=== PATIENT | female | born 1935 | race Caucasian/White ===

== ENCOUNTER 2016-11-13 07:29 | Emergency (ER) | payer OTHER, MEDICAID ==
[~2016-11-13] VITALS: Ht 152.4 cm; Wt 45.0 kg
[2016-11-13] MEDS ORDERED: ATEN-42 PO (07:37)
[2016-11-13] MEDS ORDERED: ONDANSETRON HCL 4MG/2ML VIAL IV STA (07:43)
[2016-11-13] MEDS ORDERED: KETOROLAC 30MG/ML VIAL IV STA (07:43)
[2016-11-13] MEDS ORDERED: MORPHINE SULFATE 4 MG/ML CPJ (NOT FOR IM USE) IV STA (07:43)
[2016-11-13] MEDS ORDERED: DIPHENHYDRAMINE 50MG/ML VIAL IV PRN (11:30)
[2016-11-13] MEDS ORDERED: IPRATROPIUM/ALBUTEROL 0.5-3(2.5)MG/3ML NEB INH PRN (11:30)
[2016-11-13] MEDS ORDERED: NA PHOS,M-B/NA PHOS,DI-BA ENEMA 118ML PR PRN (11:30)
[2016-11-13] MEDS ORDERED: GUAIFENESIN 200MG/10ML SUGAR FREE UDC PO PRN (11:30)
[2016-11-13] MEDS ORDERED: DOCUSATE SODIUM 100MG CAPSULE PO PRN (11:30)
[2016-11-13] MEDS ORDERED: ENOXAPARIN 40MG/0.4ML SYR SUBCUT SCH (11:30)
[2016-11-13] MEDS ORDERED: HYDROCODONE/APAP 7.5/325MG 1 TAB TABLET PO PRN (11:30)
[2016-11-13] MEDS ORDERED: MAGNESIUM/ALUMINUM HYDROXIDE/SIMETHICONE 30ML UDC PO PRN (11:30)
[2016-11-13] MEDS ORDERED: HYDROMORPHONE HCL/PF 2MG/ML CPJ IV PRN (11:30)
[2016-11-13] MEDS ORDERED: CLONIDINE 0.1MG TABLET PO PRN (11:30)
[2016-11-13] MEDS ORDERED: LORAZEPAM 2MG/ML CPJ IV PRN (11:30)
[2016-11-13] MEDS ORDERED: ACETAMINOPHEN 325MG TABLET PO PRN (11:30)
[2016-11-13 12:28] VITALS: BP 166/53
== END 2016-11-13 12:55 | disposition short-term general hospital (02) ==
LOC: ER 07:38 → EDBEDREQTM 12:30 → ER 12:55 → ENRESERV 17:56 → CANBEDREQ 11-14 01:30
DX: S42.411A Displaced simple supracondylar fracture without intercondylar fracture of right humerus, initial encounter for closed fracture (principal); S42.401A Unspecified fracture of lower end of right humerus, initial encounter for closed fracture; I10 Essential (primary) hypertension; W01.0XXA Fall on same level from slipping, tripping and stumbling without subsequent striking against object, initial encounter; Y99.8 Other external cause status; Y93.89 Activity, other specified; Y92.89 Other specified places as the place of occurrence of the external cause
CPT/HCPCS: 73070; 96374; 96375; 99285; J1885; J2270; J2405; A4565